=== PATIENT | female | born 2000 ===

== ENCOUNTER 2019-10-28 22:32 | Observation (INO) | payer OTHER ==
[2019-10-28 23:59] LABS: Hematocrit 25.3 % (30.3-42.9); Hemoglobin 8.8 gm/dl (10.1-14.3); Mean Corpuscular HGB Conc 35 % (30-34); Mean Corpuscular Volume 83 fl (79-97); Platelet Count 280 K/mm3 (140-440); Red Blood Count 3.07 M/mm3 (3.65-5.03); Red Cell Distribution Width 13.5 % (13.2-15.2)
[2019-10-29 00:20] LABS: Alanine Aminotransferase 15 units/L (7-56); Albumin 2.6 g/dL (3.9-5); BUN/Creatinine Ratio 13; Blood Urea Nitrogen 5 mg/dL (7-17); Calcium 7.8 mg/dL (8.4-10.2); Hemolysis Index 89
--- NOTE | 2019-10-29 01:16 | Ultrasound Report ---
ULTRASOUND OBSTETRIC LIMITED INDICATION / CLINICAL INFORMATION: Constant abd pain of unspecified origin. TECHNIQUE: Transabdominal ultrasound imaging. COMPARISON: None available. FINDINGS: HEART RATE (beats per minute): 176 bpm AMNIOTIC FLUID INDEX (cm) = not measured PRESENTATION: Transverse. ADDITIONAL FINDINGS: Placenta is located posteriorly, left lateral with a grade of 1. No evidence for abruption. IMPRESSION: No evidence for placental abruption. Signer Name: Heather Masters MD Signed: 10/29/2019 1:12 AM Workstation Name: [id number]
[2019-10-29 01:17] LABS: Bacteria,Urine 4+ /HPF (Negative); Bilirubin,Urine NEG (Negative); Blood,Urine MOD (Negative); Color,Urine Yellow (Yellow); Mucus,Urine FEW /HPF; WBC,Urine > 182.0 /HPF (0.0-6.0)
--- NOTE | 2019-10-29 01:23 | Ultrasound Report ---
ULTRASOUND ABDOMEN, COMPLETE INDICATION: constant abd pain of unspecified origin. Patient is COMPARISON: None available. FINDINGS: Pancreas: Questionable mass in the region of the pancreatic tail measuring 2.9 cm. It is unclear if t his represents a true abnormality versus difficulty in imaging the pancreas due to patient's pregnanc y. Abdominal Aorta: Normal. IVC: Normal. Liver: Normal. Gallbladder: Sludge is present within the gallbladder lumen. No definite gallstones or gallbladder wa ll thickening. Bile ducts: Normal. Common Bile Duct measures 2 mm. Right Kidney: Normal. Left Kidney: Normal. Spleen: Normal. Free fluid: None. Additional Findings: None. IMPRESSION: 1. Sludge is present within the gallbladder. The gallbladder is otherwise unremarkable. 2. Questionable pancreatic mass. This may just represent bowel, given the patient's . This c an be reevaluated after the patient delivers. Signer Name: Heather Matsers MD Signed: 10/29/2019 1:19 AM Workstation Name: [id number]
[2019-10-29] MEDS ORDERED: AMPICILLIN/NS 2 GM/100 ML 2 GM/100 ML BAG IV ONE (01:33)
[2019-10-29] MEDS ORDERED: AMPICILLIN/NS 1 GM/50 ML 1 GM/50 ML BAG IV SCH ×2 (01:33→07:00)
[2019-10-29 02:17] LABS: Band Neutrophils # (Manual) 1.6 K/mm3; Basophils % (Manual) 0 % (0.0-1.8); Eosinophils % (Manual) 0 % (0.0-4.3); Total Cells Counted 100
[2019-10-29 02:18] LABS: Ovalocytes Rare; Platelet Estimate Consistent w Auto
[2019-10-29] MEDS ORDERED: LACTATED RINGERS 1,000 ML ONE (02:51)
[2019-10-29] MEDS ORDERED: LACTATED RINGERS 1,000 ML IV SCH (03:14)
[2019-10-29] MEDS: ACETAMINOPHEN 325 MG TAB PO PRN ×3 (03:47→16:03)
[2019-10-29] MEDS ORDERED: LIDOCAINE-MPF (1%) 10 MG/1 ML VIAL 5 ML INFILTRATI ONE (12:00)
--- NOTE | 2019-10-29 12:03 | History and Physical Report ---
History of Present Illness Date of examination: 10/29/19 (Pt seen around 1130 am) Date of admission: 10/29/19 07:39 History of present illness: PT is a at 23.4 weeks ([facility] pt) who presented yesterday with low mid abd pain. Pain is worse just prior to voiding and is improved with voiding. No pain currently. Pt interviewed via phone behavior therapist. No VB or d/c. No LOF. PT also notes that she has had a fever at home for a few days. No CP/SOB. PT is febrile here with temp as high as 103.2. UA suggestive of UTI. No cough. Pt denies any recent foreign travel or any contact with anyone who has been sick or travel to a foreign country. Ob U/S was WNL. Abd U/S showed some GB sludge but no stones and a questionable mass on pancreas measuring 2.9 cm but it could have also just been normal bowel, per the radiology report. PT with no upper or mid abd pain. Past History Past Medical History: no pertinent history Past Surgical History: no surgical history - Obstetrical History : 2 Para: 1 Hx # Term Pregnancies: 1 Number of Living Children: 1 Medications and Allergies Allergies Allergy/AdvReac Type Severity Reaction Status Date / Time No Known Allergies Allergy Unverified 10/28/19 22:50 Home Medications Medication Instructions Recorded Confirmed Last Taken Type No Known Home Medications [No 10/29/19 10/29/19 Unknown History Reported Home Medications] Active Meds: Active Medications Acetaminophen (Tylenol) 650 mg PO Q4H PRN PRN Reason: Pain MILD(1-3)/Fever >100.5/GALLEGOS Last Admin: 10/29/19 09:44 Dose: 650 mg Documented by: Lactated Ringer's (Lactated Ringers) 1,000 mls @ 125 mls/hr IV DIRECT JASIEL Last Admin: 10/29/19 03:15 Dose: 125 mls/hr Documented by: Ceftriaxone Sodium 1,000 mg/ (Sodium Chloride) 50 mls @ 100 mls/hr IV Q24H JASIEL; Protocol Lidocaine (Xylocaine 1% Mpf 5 Ml) 2 ml INFILTRATI ONCE ONE Stop: 10/29/19 12:01 Review of Systems All systems: negative (except HPI) - Vital Signs Vital signs: Vital Signs Temp 98.9 F 10/28/19 23:00 Temp Pulse Resp BP Pulse Ox 98.9 F 115 H 16 98 10/29/19 11:45 10/29/19 12:00 10/29/19 07:48 10/29/19 12:00 - Physical Exam Breasts: Positive: deferred Abdomen: Positive: normal appearance, soft, other (Positive left CVAT). Negative: tenderness - Obstetrical FHR: auscultation normal Uterine Contraction Pattern: Absent Results Result Diagrams: 10/28/19 23:35 10/28/19 23:35 Abnormal lab results 10/28/19 10/28/19 10/28/19 Range/Units 00:50 23:35 23:35 WBC 15.7 H (4.5-11.0) K/mm3 RBC 3.07 L (3.65-5.03) M/mm3 Hgb 8.8 L (10.1-14.3) gm/dl Hct 25.3 L (30.3-42.9) % MCHC 35 H (30-34) % Seg Neuts % (Manual) 76.0 H (40.0-70.0) % Lymphocytes % (Manual) 5.0 L (13.4-35.0) % Monocytes % (Manual) 8.0 H (0.0-7.3) % Seg Neutrophils # Man 11.9 H (1.8-7.7) K/mm3 Lymphocytes # (Manual) 0.8 L (1.2-5.4) K/mm3 Monocytes # (Manual) 1.3 H (0.0-0.8) K/mm3 Sodium 125 L (137-145) mmol/L Potassium 3.5 L (3.6-5.0) mmol/L Chloride 89.5 L (98-107) mmol/L Carbon Dioxide 19 L (22-30) mmol/L BUN 5 L (7-17) mg/dL Creatinine 0.4 L (0.7-1.2) mg/dL Glucose 106 H (65-100) mg/dL Calcium 7.8 L (8.4-10.2) mg/dL Total Protein 5.6 L (6.3-8.2) g/dL Albumin 2.6 L (3.9-5) g/dL Urine WBC (Auto) > 182.0 H (0.0-6.0) /HPF All other labs normal. Assessment and Plan - Patient Problems (1) Pyelonephritis affecting in second trimester Current Visit: Yes Status: Acute Plan to address problem: PT with fever, CVAT, urinary sxs and a UA suggestive of UTI as well as a slightly elevated WBC and mild tachycardia. Therefore dx of pyelonephritis is made. Rocephin IV started. Would keep hospitalized until 48 hrs afebrile. Pt with no resp sxs so CXR cancelled but if fever still noted after 24 hrs, would order CXR then. (2) Mass of pancreas Current Visit: Yes Status: Acute Plan to address problem: Per radiology report, its unclear if pt truly has a mass there or not and it was recommended to repeat imaging after the .
[2019-10-29 13:00] VITALS: BP 96/54
[2019-10-29] MEDS ORDERED: cefTRIAXone/NS 1 GM/50 ML 1 GM/50 ML BAG IV SCH (13:00)
--- NOTE | 2019-10-29 18:47 | Event Note ---
Date: 10/29/19 PT ended up leaving AMA. This is despite the RN appropriately counseling the pt regarding risks of leaving with uncompleted tx of pyelo, including risk of sepsis and septic shock as well as potential of demise as a result. The pt has already left. As a result, will still send to pt's pharmacy Abx for 14 days.
== END 2019-10-29 19:00 | disposition left against medical advice (07) ==
LOC: TRG 22:32 → LD 10-29 07:39
PROVIDERS: ADMIT Obstetrics & Gynecology; ATTEND Obstetrics & Gynecology
DX: O23.02 Infections of kidney in pregnancy, second trimester (principal); N12 Tubulo-interstitial nephritis, not specified as acute or chronic; K86.9 Disease of pancreas, unspecified; Z3A.23 23 weeks gestation of pregnancy
CPT/HCPCS: 36415; 76700; 76815; 80053; 81001; 85007; 85025; 87040; 87400; 96365; 96366; 96367; G0378; J0290; J0696; J7120

== ENCOUNTER 2020-02-27 07:56 | Inpatient (IN) | payer OTHER ==
[2020-02-27] MEDS ORDERED: ONDANSETRON 4 MG/2 ML INJ IV PRN (09:56)
[2020-02-27] MEDS ORDERED: NALOXONE 0.4 MG/1 ML INJ IV PRN (09:56)
[2020-02-27] MEDS ORDERED: BUTORPHANOL 2 MG/1 ML INJ IV PRN (09:56)
[2020-02-27] MEDS ORDERED: ePHEDrine SULFATE 50 MG/1 ML INJ IV PRN (09:56)
[2020-02-27] MEDS ORDERED: TERBUTALINE 1 MG/1 ML INJ SUB-Q PRN (09:56)
[2020-02-27] MEDS ORDERED: TERBUTALINE 1 MG/1 ML INJ IVP PRN (09:56)
[2020-02-27] MEDS ORDERED: MINERAL OIL 30 ML ORAL LIQD PO PRN (09:56)
[2020-02-27] MEDS ORDERED: LIDOCAINE (2%) 20 MG/1 ML VIAL 20 ML MDV INFILTRATI ONE ×2 (09:56→19:21)
[2020-02-27] MEDS ORDERED: LACTATED RINGERS 1,000 ML IV SCH (10:00)
[2020-02-27] MEDS ORDERED: OXYTOCIN DRIP 30 UNITS/500 ML BAG IV SCH (10:00)
--- NOTE | 2020-02-27 10:03 | History and Physical Report ---
History of Present Illness Date of examination: 02/27/20 Date of admission: 02/27/20 07:56 Chief complaint: Presents for a scheduled postdates induction History of present illness: Early entry to care at [facility]; 2nd trimester complicated by Pyelonephritis; 3rd trimester complicated by a lapse in care. Past History Past Medical History: no pertinent history Past Surgical History: no surgical history Family/Genetic History: none Social history: no significant social history, single - Obstetrical History Expected Date of Delivery: 02/21/20 Actual Gestation: 40 Week(s) 6 Day(s) : 2 Para: 1 Hx # Term Pregnancies: 1 Number of Living Children: 1 #1 Infant Gender: Female Method of Delivery: Vaginal Gestational age at delivery: 40 Complications: none Medications and Allergies Allergies Allergy/AdvReac Type Severity Reaction Status Date / Time No Known Allergies Allergy Verified 02/27/20 08:24 Home Medications Medication Instructions Recorded Confirmed Last Taken Type cephALEXin [Keflex] 500 mg PO Q6HR 14 Days #54 capsule 10/29/19 Unknown Rx Active Meds: Active Medications Butorphanol Tartrate (Stadol) 2 mg IV Q2H PRN PRN Reason: Pain , Severe (7-10) Ephedrine Sulfate (Ephedrine Sulfate) 10 mg IV Q2M PRN PRN Reason: Hypotension Oxytocin/Sodium Chloride (Pitocin/Ns 20 Unit/1000ml Drip) 20 units in 1,000 mls @ 125 mls/hr IV DIRECT JASIEL Oxytocin/Sodium Chloride (Pitocin/Ns 30 Unit/500ml) 30 units in 500 mls @ 4 mls/hr IV TITR JASIEL; Protocol Lactated Ringer's (Lactated Ringers) 1,000 mls @ 125 mls/hr IV DIRECT JASIEL Ampicillin Sodium (Ampicillin/Ns 1 Gm/50 Ml) 1 gm in 50 mls @ 100 mls/hr IV Q4HR JASIEL; Protocol Ampicillin Sodium (Ampicillin/Ns 2 Gm/100 Ml) 2 gm in 100 mls @ 100 mls/hr IV ONCE ONE; Protocol Stop: 02/27/20 10:55 Lidocaine (Xylocaine 2%) 20 ml INFILTRATI ONCE ONE Stop: 02/27/20 09:57 Mineral Oil (Mineral Oil) 30 ml PO QHS PRN PRN Reason: Constipation Naloxone HCl (Naloxone) 0.1 mg IV Q2MIN PRN PRN Reason: Res Rate </= 8 or 02 SAT < 92% Ondansetron HCl (Zofran) 4 mg IV Q8H PRN PRN Reason: Nausea And Vomiting Terbutaline Sulfate (Brethine) 0.25 mg SUB-Q ONCE PRN PRN Reason: Hyperstimulation/Hypertonicity Terbutaline Sulfate (Brethine) 0.25 mg IVP ONCE PRN PRN Reason: Hyperstimulation/Hypertonicity - Vital Signs Vital signs: Vital Signs Temp Pulse Resp BP Pulse Ox 99 F 102 H 18 113/71 98 02/27/20 08:24 02/27/20 08:24 02/27/20 08:24 02/27/20 08:24 02/27/20 08:24 Temp Pulse Resp BP Pulse Ox 99 F 98 H 18 113/71 97 02/27/20 08:24 02/27/20 09:31 02/27/20 08:24 02/27/20 08:25 02/27/20 09:31 - Physical Exam Breasts: Positive: normal Cardiovascular: Regular rate Lungs: Positive: Clear to auscultation, Normal air movement Abdomen: Positive: normal appearance, soft, normal bowel sounds Genitourinary (Female): Positive: normal external genitalia, normal perenium Vagina: Positive: normal moisture Uterus: Positive: enlarged Anus/Rectum: Positive: normal perianal skin - Obstetrical FHR: category 1 Uterine Contraction Monitor Mode: External Cervical Dilatation: 3 (VTX; Intact) Cervical Effacement Percentage: 60 station: -3 Uterine Contraction Pattern: Irregular Uterine Tone Measurement Phase: Resting Uterine Contraction Intensity: Mild Results All other labs normal. Assessment and Plan A: IUP @ 40 6/7 Weeks Category I Tracing GBS Unknown P: Admit to L&D per Routine Orders Pitocin Induction GBS Prophylaxis
[2020-02-27] MEDS ORDERED: AMPICILLIN/NS 2 GM/100 ML 2 GM/100 ML BAG IV ONE (10:15)
--- NOTE | 2020-02-27 11:21 | Progress Note ---
Assessment and Plan A: IUP @ 40 6/7 Weeks Category I Tracing GBS Unknown P: AROM IUPC placed Pitocin Induction GBS Prophylaxis Subjective - Subjective Date of service: 02/27/20 Interval history: Early entry to care at [facility]; 2nd trimester complicated by Pyelonephritis; 3rd trimester complicated by a lapse in care. Patient reports: movement normal, contractions (states very mild in intensity) Objective - Vital Signs Vital Signs: Vital Signs - 12hr 02/27/20 02/27/20 02/27/20 08:24 08:25 08:26 Temperature 99 F Pulse Rate 102 H 94 H 125 H Respiratory 18 Rate Blood Pressure 113/71 Blood Pressure 113/71 [Left] O2 Sat by Pulse 98 98 Oximetry 02/27/20 02/27/20 02/27/20 08:31 08:36 08:41 Temperature Pulse Rate 99 H 116 H 111 H Respiratory Rate Blood Pressure Blood Pressure [Left] O2 Sat by Pulse 99 98 96 Oximetry 02/27/20 02/27/20 02/27/20 08:46 08:51 08:56 Temperature Pulse Rate 110 H 125 H 104 H Respiratory Rate Blood Pressure Blood Pressure [Left] O2 Sat by Pulse 96 96 98 Oximetry 02/27/20 02/27/20 02/27/20 09:01 09:06 09:11 Temperature Pulse Rate 128 H 126 H 100 H Respiratory Rate Blood Pressure Blood Pressure [Left] O2 Sat by Pulse 95 96 96 Oximetry 02/27/20 02/27/20 02/27/20 09:12 09:16 09:21 Temperature Pulse Rate 101 H 120 H 101 H Respiratory Rate Blood Pressure Blood Pressure [Left] O2 Sat by Pulse 93 97 96 Oximetry 02/27/20 02/27/20 02/27/20 09:26 09:31 10:10 Temperature Pulse Rate 92 H 98 H 105 H Respiratory Rate Blood Pressure 93/53 Blood Pressure [Left] O2 Sat by Pulse 97 97 Oximetry 02/27/20 02/27/20 02/27/20 10:27 10:32 10:37 Temperature Pulse Rate 92 H 129 H 115 H Respiratory Rate Blood Pressure Blood Pressure [Left] O2 Sat by Pulse 95 96 96 Oximetry 02/27/20 02/27/20 02/27/20 10:42 10:47 10:52 Temperature Pulse Rate 103 H 112 H 83 Respiratory Rate Blood Pressure Blood Pressure [Left] O2 Sat by Pulse 97 96 97 Oximetry 02/27/20 02/27/20 02/27/20 10:57 11:02 11:07 Temperature Pulse Rate 97 H 87 89 Respiratory Rate Blood Pressure Blood Pressure [Left] O2 Sat by Pulse 96 98 97 Oximetry 02/27/20 02/27/20 11:10 11:12 Temperature Pulse Rate 104 H 103 H Respiratory Rate Blood Pressure 117/73 Blood Pressure [Left] O2 Sat by Pulse 98 Oximetry - Exam Breasts: normal Cardiovascular: Regular rate Lungs: Clear to auscultation, Normal air movement Abdomen: Present: normal appearance, soft, normal bowel sounds Uterus: Present: normal, firm, fundal height above umbilicus FHR: category 1 Uterine Contraction Monitor Mode: Internal Cervical Dilatation: 3.5 (Copious amount of clear fluid upon AROM @ 1115) Cervical Effacement Percentage: 40 station: -2 Uterine Contraction Frequency (min): 1-2 Uterine Contraction Pattern: Regular Uterine Tone Measurement Phase: Resting Uterine Contraction Intensity: Mild Extremities: normal
[2020-02-27 11:39] LABS: Hematocrit 30.2 % (30.3-42.9); Hemoglobin 9.5 gm/dl (10.1-14.3); Mean Corpuscular HGB Conc 32 % (30-34); Mean Corpuscular Volume 76 fl (79-97); Platelet Count 245 K/mm3 (140-440); Red Blood Count 3.96 M/mm3 (3.65-5.03); Red Cell Distribution Width 16.4 % (13.2-15.2)
[2020-02-27] MEDS: AMPICILLIN/NS 1 GM/50 ML 1 GM/50 ML BAG IV SCH ×2 (15:21→19:06)
--- NOTE | 2020-02-27 15:35 | Procedure Note ---
OB Delivery Note - Delivery Date of Delivery: 02/27/20 (1515) Surgeon: RAMESH PEREZ Estimated blood loss: 200cc - Vaginal Delivery presentation: vertex Delivery position: OA Intrapartum events: postterm- > or = 42 weeks, other(please specify) (GDM A2) Delivery induction: cervidil Delivery augmentation: rupture of membranes, pitocin Delivery monitor: external FHT, internal uterine Route of delivery: Delivery placenta: spontaneous Delivery cord: 3 umbilical vessels Episiotomy: none Delivery laceration: none Anesthesia: none Delivery comments: of a live 9'5 male over a intact perineum under IV pain control with Apgars of 8 and 9 at 1515 on 01/28/2020. Infant directly to maternal abd/chest, skin to skin contact. Spontaneous delivery of placenta complete and intact with Tay side presenting at 1518. Fundus is firm and midline located 4 below the U. Lochia is scant. Delayed cord clamping and cutting; cord cut by the Mother. Cord blood collected; placenta discarded. - Infant A at 1 minute: 8 at 5 minutes: 9 Gender: Male (9'5)
[2020-02-27] MEDS: OXYTOCIN 20 UNIT/1000ML DRIP 20 UNITS/1,000 ML BAG IV SCH ×2 (19:32→21:32)
--- NOTE | 2020-02-27 19:46 | Procedure Note ---
OB Delivery Note - Delivery Date of Delivery: 02/27/20 (1915) Surgeon: RAMESH LAO Estimated blood loss: other (250) - Vaginal Delivery presentation: vertex Delivery position: OA Intrapartum events: prolonged active phase Delivery induction: oxytocin Delivery augmentation: rupture of membranes, pitocin Delivery monitor: external FHT, internal uterine Route of delivery: Delivery placenta: spontaneous Episiotomy: none Delivery laceration: none Anesthesia: none Delivery comments: of a live 6'15 male over a intact perineum under IV pain control with Apgars of 8 and 9 at 191 on 02/27/2020. Infant delivered by Jessika Best RN. Spontaneous delivery of placenta complete and intact by SHAINA Lao at 1923. Fundus is firm and midline located 4 below the U; Lochia is scant. Cord blood collected; Placenta discarded. - Infant A at 1 minute: 8 at 5 minutes: 9 Gender: Male (6'15)
[2020-02-27] MEDS ORDERED: MAGNESIUM HYDROXIDE (MOM) ORAL LIQD UDC PO PRN (19:47)
[2020-02-27] MEDS ORDERED: diphenhydrAMINE 25 MG CAP PO PRN (19:47)
[2020-02-27] MEDS ORDERED: HYDROcodone/ACETAMINOPHEN 5-325 MG TAB PO PRN (19:47)
[2020-02-27] MEDS ORDERED: LANOLIN/ZINC/DIMETHICONE (LANSINOH) 7 GM TP PRN (19:47)
[2020-02-27] MEDS ORDERED: WITCH HAZEL/ GLYCERIN PAD TP PRN (19:47)
[2020-02-27] MEDS ORDERED: IBUPROFEN 600 MG TAB PO SCH (20:00)
[2020-02-27] MEDS: IBUPROFEN 600 MG TAB PO SCH (23:41)
[2020-02-28] MEDS: IBUPROFEN 600 MG TAB PO SCH ×3 (05:45→17:48)
[2020-02-28] MEDS ORDERED: medroxyPROGESTERone ACETATE 150 MG/ML SYRINGE IM ONE ×2 (05:53→22:00)
--- NOTE | 2020-02-28 05:56 | Progress Note ---
Assessment and Plan A: PP Day #1 Asymptomatic Anemia P: Follow Routine Orders FeSO4 325mg PO BID Depo Provera 150mg IM x 1 dfose prior to discharge D/C Home today per patient request RTO in 6 Weeks Subjective - Subjective Date of service: 02/28/20 Interval history: Early entry to care at [facility]; 2nd trimester complicated by Pyelonephritis; 3rd trimester complicated by a lapse in care. Patient reports: appetite normal, voiding normally, pain well controlled, flatus, ambulating normally : doing well Objective - Vital Signs Latest vital signs: Vital Signs Temp Pulse Resp BP BP Pulse Ox 02/28/20 04:30 98.7 F 64 16 97/66 02/28/20 00:30 98.6 F 77 16 101/60 02/27/20 22:00 98.2 F 84 14 105/63 99 02/27/20 21:00 98.0 F 02/27/20 20:40 95 H 110/66 02/27/20 20:25 85 109/64 02/27/20 20:10 101 H 103/58 02/27/20 19:55 105 H 108/68 02/27/20 19:40 97 H 111/70 02/27/20 19:25 107 H 110/63 02/27/20 19:09 97 H 107/67 02/27/20 19:00 98.1 F 22 02/27/20 18:20 98.4 F 02/27/20 18:13 82 100 02/27/20 18:09 80 111/70 02/27/20 18:08 91 H 100 02/27/20 18:03 98 H 100 02/27/20 17:58 77 100 02/27/20 17:53 81 100 02/27/20 17:48 105 H 99 02/27/20 17:43 85 100 02/27/20 17:31 80 95 02/27/20 17:26 114 H 97 02/27/20 17:21 98 H 96 02/27/20 17:16 89 97 02/27/20 17:11 90 96 02/27/20 17:09 85 104/60 02/27/20 17:06 98 H 95 02/27/20 17:01 96 H 95 02/27/20 16:56 106 H 96 02/27/20 16:51 83 95 02/27/20 16:46 96 H 95 02/27/20 16:41 89 96 02/27/20 16:36 113 H 97 02/27/20 16:31 101 H 96 02/27/20 16:27 94 H 94 02/27/20 16:26 100 H 97 02/27/20 16:21 80 96 02/27/20 16:18 79 94 02/27/20 16:16 89 95 02/27/20 16:11 102 H 94 02/27/20 16:10 84 94 02/27/20 16:09 79 102/55 02/27/20 16:06 91 H 94 02/27/20 16:03 89 93 02/27/20 16:01 82 94 02/27/20 15:58 82 94 02/27/20 15:56 95 H 96 02/27/20 15:51 87 88 02/27/20 15:49 91 H 93 02/27/20 15:46 95 H 98 02/27/20 15:42 18 02/27/20 15:41 84 100 02/27/20 15:36 99 H 100 02/27/20 15:31 93 H 100 02/27/20 15:26 91 H 99 02/27/20 15:21 92 H 100 02/27/20 15:16 95 H 99 02/27/20 15:11 94 H 106/55 96 02/27/20 15:07 70 84 02/27/20 15:06 114 H 96 02/27/20 15:01 97 H 97 02/27/20 14:56 91 H 98 02/27/20 14:51 99 H 97 02/27/20 14:46 102 H 98 02/27/20 14:41 89 97 02/27/20 14:36 98 H 97 02/27/20 14:31 92 H 97 02/27/20 14:26 101 H 99 02/27/20 14:21 115 H 99 02/27/20 14:16 108 H 97 02/27/20 14:11 97 H 97 02/27/20 14:09 85 96/63 02/27/20 14:06 96 H 97 02/27/20 14:01 94 H 98 02/27/20 13:56 93 H 97 02/27/20 13:51 86 97 02/27/20 13:46 84 96 02/27/20 13:41 80 96 02/27/20 13:36 89 97 02/27/20 13:27 102 H 98 02/27/20 13:22 91 H 98 02/27/20 13:21 90 108/66 02/27/20 13:17 82 98 02/27/20 13:12 94 H 97 02/27/20 13:09 84 83/52 02/27/20 13:07 77 97 02/27/20 13:02 85 97 02/27/20 12:57 90 97 02/27/20 12:52 86 97 02/27/20 12:47 98 H 97 02/27/20 12:42 98 H 97 02/27/20 12:37 89 97 02/27/20 12:32 94 H 96 02/27/20 12:27 86 96 02/27/20 12:22 76 97 02/27/20 12:17 81 97 02/27/20 12:12 84 96 02/27/20 12:09 84 94/52 02/27/20 12:07 86 97 02/27/20 12:02 83 96 02/27/20 12:00 98.7 F 02/27/20 11:57 81 98 02/27/20 11:52 109 H 97 02/27/20 11:47 100 H 98 02/27/20 11:42 82 98 02/27/20 11:37 81 98 02/27/20 11:32 85 98 02/27/20 11:27 97 H 98 02/27/20 11:22 86 98 02/27/20 11:17 90 98 02/27/20 11:12 103 H 98 02/27/20 11:10 104 H 117/73 02/27/20 11:07 89 97 02/27/20 11:02 87 98 02/27/20 10:57 97 H 96 02/27/20 10:52 83 97 02/27/20 10:47 112 H 96 02/27/20 10:42 103 H 97 02/27/20 10:37 115 H 96 02/27/20 10:32 129 H 96 02/27/20 10:27 92 H 95 02/27/20 10:10 105 H 93/53 02/27/20 09:31 98 H 97 02/27/20 09:26 92 H 97 02/27/20 09:21 101 H 96 02/27/20 09:16 120 H 97 02/27/20 09:12 101 H 93 02/27/20 09:11 100 H 96 02/27/20 09:06 126 H 96 02/27/20 09:01 128 H 95 02/27/20 08:56 104 H 98 02/27/20 08:51 125 H 96 02/27/20 08:46 110 H 96 02/27/20 08:41 111 H 96 02/27/20 08:36 116 H 98 02/27/20 08:31 99 H 99 02/27/20 08:26 125 H 98 02/27/20 08:25 94 H 113/71 02/27/20 08:24 99 F 102 H 18 113/71 98 Intake and Output 02/27/20 02/27/20 02/28/20 14:59 22:59 06:59 Intake Total 4.799 165.016 Output Total 600 1400 Balance -595.201 -1234.984 Intake: IV 4.799 165.016 AMPICILLIN/NS 1 GM/50 ML 50 1 gm In 50 ml @ 100 mls/ hr IV Q4HR JASIEL Rx#: [id number] PITOCin/NS 20 UNIT/1000ML 102.083 DRIP 20 units In 1,000 ml @ 125 mls/hr IV DIRECT JASIEL Rx#:[id number] PITOCin/NS 30 UNIT/500ML 4.799 12.933 30 units In 500 ml @ 4 mls/hr IV TITR JASIEL Rx#: [id number] Output: Urine 600 1400 Void 600 1400 Other: Total, Output Amount 300 700 Weight 112 kg 50.802 kg Estimated Blood Loss 250 Patient Weight 02/28/20 06:59 Weight 50.802 kg - Exam Breasts: Present: normal Cardiovascular: Present: Regular rate Lungs: Present: Clear to auscultation, Normal air movement Abdomen: Present: normal appearance, soft, normal bowel sounds Uterus: Present: normal, firm, fundal height below umbilicus Extremities: Present: normal - Labs Labs: Abnormal lab results 02/27/20 Range/Units 11:32 Hgb 9.5 L (10.1-14.3) gm/dl Hct 30.2 L (30.3-42.9) % MCV 76 L (79-97) fl MCH 24 L (28-32) pg RDW 16.4 H (13.2-15.2) %
--- NOTE | 2020-02-28 05:57 | Discharge Summary ---
Providers - Providers Date of Admission: 02/27/20 07:56 Date of discharge: 02/28/20 Attending physician: RADHA MEJIA MD Primary care physician: RADHA MEJIA MD Hospitalization Reason for admission: induction of labor Delivery: Episiotomy: none Laceration: none Other procedures: none complications: none Discharge diagnosis: IUP at term delivered Moody baby: male Condition at discharge: Good Disposition: DC-01 TO HOME OR SELFCARE Plan - Provider Discharge Summary Activity: routine, no sex for 6 weeks, no heavy lifting 4 weeks, no strenuous exercise Diet: routine Instructions: routine Additional instructions: [] Smoking cessation referral if applicable(refer to patient education folder for contact #) [] Refer to [facility]'s [facility] Booklet Call your doctor immediately for: * Fever > 100.5 * Heavy vaginal bleeding ( >1 pad per hour) * Severe persistent headache * Shortness of breath * Reddened, hot, painful area to leg or breast * Drainage or odor from incision. * Keep incision clean and dry at all times and follow doctor's instructions regarding bathing/showering - Follow up plan Follow up: RADHA MEJIA MD [Primary Care Provider] - 6 Weeks
[2020-02-28 09:19] LABS: Hematocrit 26.5 % (30.3-42.9); Hemoglobin 8.7 gm/dl (10.1-14.3)
[2020-02-28] MEDS ORDERED: PRENATAL VIT27-FE FUMARATE-FOLIC ACID VIT TAB PO SCH (10:00)
[2020-02-28] MEDS: FERROUS SULFATE 325 MG TAB PO SCH ×2 (12:43→21:30)
[2020-02-28 19:58] VITALS: BP 99/78
== END 2020-02-28 22:11 | disposition home or self-care (01) | DRG 807 ==
LOC: LD 07:56 → OB 21:30
PROVIDERS: ADMIT Obstetrics & Gynecology; ATTEND Obstetrics & Gynecology
PROC: 10E0XZZ Delivery of Products of Conception, External Approach (ICD-10-PCS; principal; 2020-02-27)
PROC: 3E033VJ Introduction of Other Hormone into Peripheral Vein, Percutaneous Approach (ICD-10-PCS; 2020-02-27)
PROC: 10H07YZ Insertion of Other Device into Products of Conception, Via Natural or Artificial Opening (ICD-10-PCS; 2020-02-27)
DX: O99.02 Anemia complicating childbirth (principal); Z37.0 Single live birth; Z3A.40 40 weeks gestation of pregnancy
CPT/HCPCS: 36415; 85014; 85018; 85027; 86850; 86900; 86901; G0378; J0290; J0595; J1050; J2405; J2590; J7120